=== PATIENT | female | born 1975 | race Caucasian/White ===

== ENCOUNTER 2016-05-07 10:11 | Day surgery (SDC) | payer SELFPAY ==
[2016-04-29 12:21] VITALS: BMI 25.8
[2016-05-07] MEDS ORDERED: MIDAZOLAM HCL 2 MG/2 ML SINGLE DOSE VIAL ONE (10:30)
[2016-05-07] MEDS ORDERED: DEXAMETHASONE SOD PHOSPHATE 4 MG/1 ML VIAL ONE ×2 (10:32→15:22)
[2016-05-07] MEDS ORDERED: ONDANSETRON 4 MG/2 ML VIAL ONE ×2 (10:32→14:40)
[2016-05-07] MEDS ORDERED: ROCURONIUM BROMIDE 50 MG/5 ML VIAL ONE (10:33)
[2016-05-07] MEDS ORDERED: LIDOCAINE 1%-EPI 1:100,000 30 ML MDV IJ ONE (10:47)
[2016-05-07] MEDS ORDERED: LIDOCAINE HCL 1%, 10 MG/ML (20ML VIAL) ONE (10:47)
[2016-05-07] MEDS ORDERED: EPINEPHrine/PF 1 MG/1 ML (1:1,000) AMPULE ONE (10:48)
[2016-05-07] MEDS ORDERED: GUM MASTIC/STORAX/MSAL/ALCOHOL 1 DRP DROPSBTL MC ONE (13:07)
[2016-05-07] MEDS ORDERED: ACETAMINOPHEN 325 MG TABLET (FP) PO PRN (15:48)
[2016-05-07] MEDS ORDERED: ONDANSETRON 4 MG/2 ML VIAL IVPB PRN (15:48)
[2016-05-07] MEDS ORDERED: oxyCODONE HCL 5 MG TABLET PO PRN (15:56)
[2016-05-07] MEDS ORDERED: LACTATED RINGERS SOLUTION 1,000 ML IV SCH ×2 (16:00→16:15)
[2016-05-07] MEDS ORDERED: HYDROmorphone HCL CARPU-JECT 1 MG/1 ML DISP.SYRIN IVPUSH PRN (16:05)
[2016-05-07] MEDS ORDERED: ONDANSETRON 4 MG/2 ML VIAL IVPUSH PRN (16:05)
[2016-05-07] MEDS ORDERED: PROMETHAZINE HCL 25 MG/1 ML VIAL IVPUSH PRN (16:08)
[2016-05-07] MEDS: HYDROmorphone HCL CARPU-JECT 2 MG/1 ML DISP.SYRIN IVPB PRN (19:07)
[2016-05-07] MEDS: CEFAZOLIN 1 GM/D5W 50 ML IVPB SCH (20:48)
[2016-05-08] MEDS: OXYCODONE/APAP 5/325MG COMBO TABLET PO PRN ×2 (00:43→08:58)
[2016-05-08] MEDS: HYDROmorphone HCL CARPU-JECT 2 MG/1 ML DISP.SYRIN IVPB PRN (02:03)
[2016-05-08] MEDS: CEFAZOLIN 1 GM/D5W 50 ML IVPB SCH ×2 (03:00→08:31)
[2016-05-08 06:21] VITALS: BP 125/63; PULSE 74; TEMP 98.6
--- NOTE | 2016-05-09 10:34 | OP ---
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 PROCEDURE PERFORMED: 1. Bilateral brachioplasty. 2. Bilateral breast reduction mammoplasty. DRAINS: None. COMPLICATIONS: None. ESTIMATED BLOOD LOSS: 80 mL. FLUIDS ADMINISTERED: Crystalloid solution, 2.8 L. DESCRIPTION OF PROCEDURE: The patient was brought to the operating room, placed supine on the operating table. After establishing general endotracheal anesthesia, sequential compression devices were showed to be functioning appropriately, and the chest and arms were prepped with topical chlorhexidine solution and draped with sterile drapes. The brachioplasty was performed initially, and an appropriate time-out was performed identifying the patient and the nature of the procedure and allowing all operative participants to ask questions and/or raise concerns as indicated. Tumescent infiltration was injected through small stab incisions at the posterior trochanteric region on both arms for a total volume of 150 mL per side. Lipoaspiration using the Body Jet System was then performed for a total of 400 mL effluent. This completed the preoperative markings, were refreshed with a sterile surgical marking pen, first on the right, then on the left side respectively. They were incised with a No. 10 blade sharply dividing skin and subcutaneous tissues. A crescentic skin excess was then excised with the PEAK PlasmaBlade passed off the table. Hemostasis being assured, first on the right, then on the left side respectively, a layered closure was completed with interrupted 3-0 PDS for the deep dermal layer followed by a running 4-0 Biosyn subcuticular suture. Mastisol and Steri-Strips were then applied. Telfa dressings with a Webril Kerlix wrap secured with an Timoteo bandage were applied, and the patients arms were placed in the abducted position on padded arm boards. The breasts were then reprepped with topical chlorhexidine solution and fresh drapes were applied. Again, using separate gown, gloves, and instruments, a 45-mm cookie-cutter inscription was imprinted around first the right and then the left nipple complex respectively. This allowed for a keyhole vertical mastopexy incision to be inscribed with a sterile surgical marking pen and incised with a No. 10 blade. The intervening skin was deepithelialized, first on the right side, and then the left side, for a total pedicle length of approximately 6 cm. The Bovie cautery was used to divide through the breast parenchyma using a superior pedicle. The excess breast glandular tissue was excised on the right side first and then the left side. This was passed off separately as specimens, marked appropriately as breast gland. Once this was completed, the hemostasis was assured, a Flores Pattern closure was completed with interrupted 2-0 Vicryl for the deep parenchymal layer followed by interrupted 3-0 Monocryl for the deep dermal and lastly a running 4-0 Biosyn subcuticular suture was placed. Mastisol and Steri-Strips were again applied. Fluff gauze dressings with ABD pads and a surgical bra were placed. She was successfully extubated, transferred to the post-anesthesia care unit in stable condition. RENETTA ALEJANDRO M.D. [id number]
--- NOTE | 2016-05-09 13:59 | PATH ---
Surgical Pathology Report Patient Name: JELENA MARIA [facility]. Rec. #: [id number] /Age/Gender: 1975 (Age: 40) / F Account: [id number] Location: [facility] AMBULATORY Taken: 05/07/2016 Received: 05/07/2016 Reported: 05/09/2016 Physicians: Zachery Alejandro Specimen(s) Received A: LEFT ARM FAT B: RIGHT ARM FAT C: LEFT BREAST TISSUE D: RIGHT BREAST TISSUE Clinical History Cosmetic Final Diagnosis A. SKIN AND SOFT TISSUE, LEFT ARM, BRACHIOPLASTY: UNREMARKABLE SKIN AND ADIPOSE TISSUE (GROSS ONLY). B. SKIN AND SOFT TISSUE, RIGHT ARM, BRACHIOPLASTY: UNREMARKABLE SKIN AND ADIPOSE TISSUE (GROSS ONLY). C. LEFT BREAST, REDUCTION MAMMOPLASTY: BENIGN BREAST TISSUE, AND UNREMARKABLE SKIN. D. RIGHT BREAST, REDUCTION MAMMOPLASTY: BENIGN BREAST TISSUE, AND UNREMARKABLE SKIN. Electronically Signed Obed Chi M.D. Gross Description A. Received in formalin, labeled "left arm fat," is a 117 g, 12.5 x 7.5 x 3.5 cm aggregate of multiple saini, irregular portions of skin with underlying soft tissue. The epidermal surfaces are unremarkable. Sectioning reveals unremarkable yellow, lobulated adipose tissue. No lesions are identified. No sections are submitted, gross only. B. Received in formalin, labeled "right arm fat," is a 128 g, 14 0.0 x 7.5 x 3.0 cm aggregate of multiple saini, irregular portions of skin with underlying soft tissue. The epidermal surfaces are unremarkable. Sectioning reveals unremarkable yellow, lobulated adipose tissue. No lesions are identified. No sections are submitted, gross only. C. Received in formalin, labeled "left breast tissue," is a 171 g, 13.0 x 11.0 x 3.3 cm aggregate of multiple irregular, unoriented portions of fibroadipose tissue and skin. The epidermal surfaces are unremarkable. Sectioning reveals foci of thin white fibrous tissue. No definitive masses are identified. [employer] sections are submitted in 2 cassettes. D. Received in formalin, labeled "right breast tissue," is a 146 g, 13.0 x 10.5 x 2.7 cm aggregate of multiple irregular, unoriented portions of fibroadipose tissue and skin. The epidermal surfaces are unremarkable. Sectioning reveals foci of thin white fibrous tissue. No definitive masses are identified. [employer] sections are submitted in 2 cassettes. /05/08/2016 [facility]05/08/2016
== END 2016-05-08 09:09 | disposition home or self-care (01) ==
LOC: FASU 10:11 → FM/S 17:28 → FASU 05-08 09:09
PROVIDERS: ATTEND Surgery Plastic and Reconstructive Surgery
PROC: 0J0D0ZZ Alteration of Right Upper Arm Subcutaneous Tissue and Fascia, Open Approach (ICD-10-PCS; 2016-05-07)
PROC: 0HBV0ZZ Excision of Bilateral Breast, Open Approach (ICD-10-PCS; principal; 2016-05-07 11:00)
PROC: 0J0F0ZZ Alteration of Left Upper Arm Subcutaneous Tissue and Fascia, Open Approach (ICD-10-PCS; 2016-05-07 11:00)
DX: Z41.1 Encounter for cosmetic surgery (principal); N62 Hypertrophy of breast; E88.1 Lipodystrophy, not elsewhere classified
CPT/HCPCS: 84703; 88300-TC; 88305-TC; 94760